=== PATIENT | male | born 1970 | race Caucasian/White ===

== ENCOUNTER 2016-10-24 15:41 | Emergency (ER) | payer BC, MEDICAID ==
[~2016-10-24] VITALS: Ht 165.1 cm; Wt 81.6 kg
[2016-10-24] MEDS ORDERED: LORAZEPAM 1 MG TABLET PO ONE (16:30)
[2016-10-24] MEDS ORDERED: KETOROLAC TROMETHAMINE INJ 60 MG/2 ML VIAL IM ONE (16:30)
[2016-10-24] MEDS ORDERED: LORAZEPAM 1 MG TABLET ONE (16:31)
[2016-10-24] MEDS ORDERED: KETOROLAC TROMETHAMINE INJ 30 MG/ML VIAL ONE (16:31)
[2016-10-24 17:05] VITALS: BP 167/99
== END 2016-10-24 17:06 | disposition home or self-care (01) ==
LOC: ER 15:45
DX: M62.830 Muscle spasm of back (principal); F41.9 Anxiety disorder, unspecified; M25.512 Pain in left shoulder; M79.601 Pain in right arm; M79.602 Pain in left arm; F17.210 Nicotine dependence, cigarettes, uncomplicated; V43.52XA Car driver injured in collision with other type car in traffic accident, initial encounter; Y93.89 Activity, other specified; Y92.488 Other paved roadways as the place of occurrence of the external cause; Y99.8 Other external cause status
CPT/HCPCS: A4606; J1885; Z7610

== ENCOUNTER 2019-08-21 10:36 | Emergency (ER) | payer BC ==
[~2019-08-21] VITALS: Ht 170.2 cm; Wt 90.7 kg
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
[2019-08-21] MEDS ORDERED: LORAZEPAM 1 MG TABLET ONE (11:24)
[2019-08-21] MEDS ORDERED: IBUPROFEN 600 MG TABLET PO ONE ×2 (11:24→11:30)
--- NOTE | 2019-08-21 11:28 | NUR ---
patient going for CT via wheelchair.
[2019-08-21] MEDS ORDERED: LORAZEPAM 1 MG TABLET PO ONE (11:30)
--- NOTE | 2019-08-21 11:39 | NUR ---
patient came back from CT.
[2019-08-21 12:53] VITALS: BP 140/88
--- NOTE | 2019-08-21 12:54 | NUR ---
Patient discharged to home in stable condition. Written and verbal after care instructions given. Patient verbalizes understanding of instruction.
== END 2019-08-21 12:54 | disposition home or self-care (01) ==
LOC: ER 10:39
DX: M62.838 Other muscle spasm (principal); J40 Bronchitis, not specified as acute or chronic; F17.200 Nicotine dependence, unspecified, uncomplicated; V49.69XA Unspecified car occupant injured in collision with other motor vehicles in traffic accident, initial encounter; Y93.89 Activity, other specified; Y92.413 State road as the place of occurrence of the external cause; Y99.8 Other external cause status
CPT/HCPCS: 71045-TC; 72125-TC

== ENCOUNTER 2019-11-01 14:54 | Emergency (ER) | payer BC ==
[~2019-11-01] VITALS: Ht 170.2 cm; Wt 90.3 kg
[2019-11-01 15:00] VITALS: BP 138/75
== END 2019-11-01 16:10 | disposition home or self-care (01) ==
LOC: ER 14:55
DX: J06.9 Acute upper respiratory infection, unspecified (principal); F17.200 Nicotine dependence, unspecified, uncomplicated
CPT/HCPCS: 71045-TC; 86403-TC; 87070-TC